=== PATIENT | female | born 1955 | race Caucasian/White ===

== ENCOUNTER 2021-08-06 07:52 | Outpatient (CLI) | payer MEDICARE | END 2021-08-06 07:53 | disposition home or self-care (01) | LOC: BICMAMMO 07:52 | PROVIDERS: ATTEND Physician Assistant | DX: Z12.31 Encounter for screening mammogram for malignant neoplasm of breast (principal); Z13.820 Encounter for screening for osteoporosis; Z78.0 Asymptomatic menopausal state; M81.0 Age-related osteoporosis without current pathological fracture; Z91.89 Other specified personal risk factors, not elsewhere classified; Z80.3 Family history of malignant neoplasm of breast | CPT/HCPCS: 77063; 77067; 77080 ==

== ENCOUNTER 2023-09-22 10:37 | Outpatient (CLI) | payer OTHER | END 2023-09-22 10:38 | disposition home or self-care (01) | LOC: BICULT 10:37 | PROVIDERS: ATTEND Physician Assistant | DX: R06.09 Other forms of dyspnea (principal); J98.4 Other disorders of lung; N63.23 Unspecified lump in the left breast, lower outer quadrant | CPT/HCPCS: 71046 ==

== ENCOUNTER 2024-03-21 13:41 | Outpatient (CLI) | payer OTHER | END 2024-03-21 13:42 | disposition home or self-care (01) | LOC: BICULT 13:41 | PROVIDERS: ATTEND Physician Assistant | DX: R92.8 Other abnormal and inconclusive findings on diagnostic imaging of breast (principal) ==

== ENCOUNTER 2024-04-02 11:00 | Outpatient (CLI) | payer OTHER | END 2024-04-02 11:01 | disposition home or self-care (01) | LOC: BICMAMMO 11:00 | PROVIDERS: ATTEND Physician Assistant | DX: Z78.0 Asymptomatic menopausal state (principal); M85.88 Other specified disorders of bone density and structure, other site | CPT/HCPCS: 77080 ==

== ENCOUNTER 2024-05-31 11:10 | Outpatient (CLI) | payer OTHER | END 2024-05-31 11:11 | disposition home or self-care (01) | LOC: SCSRAD 11:10 | PROVIDERS: ATTEND Physician Assistant | DX: M25.572 Pain in left ankle and joints of left foot (principal); M77.52 Other enthesopathy of left foot and ankle; M85.872 Other specified disorders of bone density and structure, left ankle and foot ==